=== PATIENT | male | born 1970 | race Caucasian/White ===

== ENCOUNTER 2021-03-16 18:58 | Emergency (ER) | payer OTHER, BC ==
[~2021-03-16] VITALS: Ht 188 cm; Wt 127.0 kg
[2021-03-16] MEDS ORDERED: HYDROCODON-ACE1 EA10 PO (22:09)
--- NOTE | 2021-03-18 16:35 | EKG ---
[facility] [address] [facility] [place] [address] Signed Normal sinus rhythm Normal ECG No previous ECGs available Confirmed by PETTY BRISENO MD ([id number]) on 03/18/2021 4:35:04 PM Electronically Signed By: PETTY BRISENO MD 03/18/21 1635 PATIENT NAME: DEEPTHI DRISCOLL Electrocardiogram DATE OF : 72 PHYSICIAN: PETTY BRISENO MD REPORT #: [id number] REPORT IS CONFIDENTIAL AND NOT TO BE RELEASED WITHOUT AUTHORIZATION
== END 2021-03-16 23:07 | disposition home or self-care (01) ==
LOC: ED 18:58
DX: U07.1 COVID-19 (principal); S06.0X1A Concussion with loss of consciousness of 30 minutes or less, initial encounter; S16.1XXA Strain of muscle, fascia and tendon at neck level, initial encounter; S30.0XXA Contusion of lower back and pelvis, initial encounter; R55 Syncope and collapse; W01.10XA Fall on same level from slipping, tripping and stumbling with subsequent striking against unspecified object, initial encounter
CPT/HCPCS: 70450; 71045; 72100; 72125; 80048; 81001; 85025; 93005; 93010; 96374; 96375; 99285-25; J1170; J2405; J7030; U0003